=== PATIENT | female | born 1995 | race Two or more races ===

== ENCOUNTER 2023-08-11 07:55 | Emergency (ER) | payer OTHER, SELFPAY ==
[2023-08-11 08:01] VITALS: BP 135/97; PULSE 89; TEMP 37.1; O2SAT 99; BMI 29.4
--- NOTE | 2023-08-11 08:21 | ED.GENADUL1 ---
HPI HPI - General Adult General Chief complaint: Anxiety Stated complaint: GENERAL WEAKNESS Time Seen by Provider: 08/11/23 08:14 Source: patient Mode of arrival: Wheelchair Limitations: no limitations History of Present Illness HPI narrative: 28-year-old female presents to the emergency department for multiple complaints. She feels like her body is shutting down. She was admitted to another hospital for 3 days and left AMA 2 days ago. 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 She has not been vomiting and has not had a fever and does not complain to me of abdominal or back pain. Related Data Home Medications ?Medication ?Instructions ?Recorded ?Confirmed No Known Home Medications 08/11/23 08/11/23 Allergies Allergy/AdvReac Type Severity Reaction Status Date / Time amoxicillin AdvReac Mild Hives Verified 08/11/23 08:06 diphenhydramine AdvReac Mild Hives Verified 08/11/23 08:06 [From Benadryl] latex AdvReac Mild Hives Verified 08/11/23 08:06 Penicillins AdvReac Mild Hives Verified 08/11/23 08:06 Opioid HPI Opioid Management Most Recent Opioid Data: Ur Phencyclidine Scrn Negative (NEGATIVE) 08/11/23 08:00 Review of Systems ROS Narrative A ten point review of systems is negative except as noted above. Exam Narrative Exam Narrative: Nurses note and vital signs reviewed and patient is not hypoxic. General: The patient appears quite anxious and is tearful. Skin: Warm, dry, no pallor noted. There is no rash noted. Left antecubital forearm IV site has no erythema and there is no mass in her arm. Head: Normocephalic, atraumatic Eye: Normal conjunctiva, no drainage, EOMI. PERRL Ears, Nose, Mouth, and Throat: oral mucosa is moist. Nares patent. Cardiovascular: Regular Rate and Rhythm Respiratory: Patient is in no distress, no accessory muscle use, lungs are clear to auscultation, no wheezing, rales or rhonchi Back: non-tender GI: Soft and nontender Musculoskeletal: The patient has no evidence of calf tenderness, no pitting edema, symmetrical pulses noted bilaterally Neurological: Awake and alert, tremorous Psychiatric: Tearful and appears anxious Constitutional Vital Signs, click to edit/add: Last Vital Signs Temp 98.8 F 08/11/23 08:01 Pulse 89 08/11/23 08:01 Resp 18 08/11/23 08:01 BP 135/97 H 08/11/23 08:01 Pulse Ox 99 08/11/23 08:01 O2 Del Method Room Air 08/11/23 08:01 Course Vital Signs Vital signs: Vital Signs Temperature 98.8 F 08/11/23 08:01 Pulse Rate 89 08/11/23 08:01 Respiratory Rate 18 08/11/23 08:01 Blood Pressure 135/97 H 08/11/23 08:01 Pulse Oximetry 99 08/11/23 08:01 Oxygen Delivery Method Room Air 08/11/23 08:01 Temperature 98.8 F 08/11/23 08:01 Pulse Rate 89 08/11/23 08:01 Respiratory Rate 18 08/11/23 08:01 Blood Pressure 135/97 H 08/11/23 08:01 Pulse Oximetry 99 08/11/23 08:01 Oxygen Delivery Method Room Air 08/11/23 08:01 Medical Decision Making MDM Narrative Medical decision making narrative: Her workup is essentially negative other than the drug screen. Findings are discussed with the patient and she was reassured. She is able to be discharged home and she was encouraged to merchandise pickup/receiving associate the prescription for the antibiotic sent in by [facility] that she has not yet picked up. Treatment diagnosis and follow-up were discussed with the patient. Medical Records Medical records reviewed: Yes I reviewed the patient's medical records Lab Data Lab results reviewed: Yes I reviewed the patient's lab results Labs: Lab Results 08/11/23 08/11/23 Range/Units 08:00 08:24 WBC 6.4 (4.0-11.0) 10^3/uL RBC 4.00 L (4.20-5.40) 10^6/uL Hgb 11.0 L (12.0-16.0) g/dL Hct 33.6 L (36.0-48.0) % MCV 84.0 (81.0-99.0) fL MCH 27.5 (26.7-34.0) pg MCHC 32.7 (29.9-35.2) g/dL RDW 14.1 (11.0-15.0) % Plt Count 318 (150-450) 10^3/uL MPV 10.5 (9.5-13.5) fL Seg Neuts % (Manual) 68.0 Lymphocytes % (Manual) 19.0 L (20.5-60.0) % Atypical Lymphs % (Man) 2.0 % Monocytes % (Manual) 8.0 (1.7-12.0) % Eosinophils % (Manual) 2.0 (0.9-7.0) % Basophils % (Manual) 1.0 (0.2-2.0) % Neutrophils # (Manual) 4.35 (1.4-6.5) 10^3/uL Lymphocytes # (Manual) 1.21 (1.20-3.80) 10^3/uL Abs Atypical Lymphs Man 0.12 Monocytes # (Manual) 0.51 (0.30-0.80) 10^3/uL Eosinophils # (Manual) 0.12 (0.00-0.70) 10^3/uL Basophils # (Manual) 0.06 (0.00-0.10) 10^3/uL Sodium 137 (136-145) mmol/L Potassium 4.1 (3.5-5.1) mmol/L Chloride 101 (98-107) mmol/L Carbon Dioxide 24.7 (21.0-32.0) mmol/L Anion Gap 15.4 BUN 5.0 L (7.0-18.0) mg/dL Creatinine 0.60 (0.55-1.02) mg/dL Est GFR ( Amer) >60 (>=60) Est GFR (Non-Af Amer) >60 (>=60) BUN/Creatinine Ratio 8.3 Glucose 104 (74-106) mg/dL Calcium 9.0 (8.5-10.1) mg/dL Total Bilirubin 0.7 (0.2-1.0) mg/dL Direct Bilirubin 0.2 (0.0-0.2) mg/dL AST 86 H (15-37) U/L ALT 152 H (14-59) U/L Alkaline Phosphatase 193 H (46-116) U/L Total Protein 7.7 (6.4-8.2) g/dL Albumin 2.6 L (3.4-5.0) g/dL Globulin 5.1 g/dL Albumin/Globulin Ratio 0.5 Serum HCG, Qual Negative (NEGATIVE) Urine Color Lt. yellow (YELLOW) Urine Clarity Clear (CLEAR) Urine pH 6.5 (5.0-9.0) Ur Specific [place] <=1.005 A (1.005-1.025) Urine Protein Negative (NEG/TRACE) mg/dL Urine Glucose (UA) Negative (NEGATIVE) mg/dL Urine Ketones Negative (NEGATIVE) mg/dL Urine Occult Blood Negative (NEGATIVE) Urine Nitrite Negative (NEGATIVE) Urine Bilirubin Negative (NEGATIVE) Urine Urobilinogen 0.2 (0.2-1.0) EU/dL Ur Leukocyte Esterase Negative (NEGATIVE) Urine RBC None seen (0-2) #/HPF Urine WBC None seen (NONE SEEN) #/HPF Ur Squamous Epith Cells Few A (NONE/RARE) #/LPF Urine Crystals None seen (None Seen) #/HPF Urine Bacteria None seen (NONE SEEN) #/HPF Urine Casts None seen (NONE SEEN) #/LPF Urine Mucus None seen (NONE SEEN) Urine Opiates Screen Negative (NEGATIVE) Ur Buprenorphine Scrn Negative (NEGATIVE) Ur Oxycodone Screen Negative (NEGATIVE) Urine Methadone Screen Negative (NEGATIVE) Ur Barbiturates Screen Negative (NEGATIVE) U Tricyclic Antidepress Negative (NEGATIVE) Ur Phencyclidine Scrn Negative (NEGATIVE) Ur Amphetamines Screen Positive A (NEGATIVE) U Methamphetamines Scrn Positive A (NEGATIVE) U Benzodiazepines Scrn Negative (NEGATIVE) Urine Cocaine Screen Negative (NEGATIVE) U Cannabinoids Screen Positive A (NEGATIVE) Ethanol Quant <3 mg/dL Discharge Plan Discharge Stand Alone Forms: Portal Instructions Chief Complaint: Anxiety Clinical Impression: Acute anxiety, Substance abuse Patient Disposition: Home, Self-Care Time of Disposition Decision: 09:52 Prescriptions / Home Meds: No Action No Known Home Medications Print Language: Vincentian Instructions: Polysubstance Use Disorder (ED), Anxiety (ED) Additional Instructions: 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 Referrals: Cheo Iraheta MD [Primary Care Provider] - 1 week
[2023-08-11 08:46] LABS: Hematocrit 33.6 % (36.0-48.0); Mean Corpuscular HGB Conc 32.7 g/dL (29.9-35.2); Mean Corpuscular Hemoglobin 27.5 pg (26.7-34.0); Mean Platelet Volume 10.5 fL (9.5-13.5); Platelet Count 318 10^3/uL (150-450); Red Cell Distribution Width 14.1 % (11.0-15.0); White Blood Count 6.4 10^3/uL (4.0-11.0)
[2023-08-11 08:53] LABS: HCG Qualitative NEGATIVE (NEGATIVE)
[2023-08-11 08:54] LABS: Bilirubin Urine NEGATIVE (NEGATIVE); Blood Urine NEGATIVE (NEGATIVE); Clarity Urine CLEAR (CLEAR); Color Urine LT. YELLOW (YELLOW); Glucose Urine UA NEGATIVE (NEGATIVE); Ketones Urine NEGATIVE (NEGATIVE); Leukocyte Esterase Urine NEGATIVE (NEGATIVE); Nitrite Urine NEGATIVE (NEGATIVE); Protein Urine NEGATIVE (NEG/TRACE); Specific Gravity Urine <=1.005 (1.005-1.025); Urobilinogen Urine 0.2 EU/dL (0.2-1.0); pH Urine 6.5 (5.0-9.0)
[2023-08-11 08:54] LABS: Internal Control Within Normal Limits
[2023-08-11 08:56] LABS: Amphetamine Screen Urine POSITIVE (NEGATIVE); Barbiturates Screen Urine NEGATIVE (NEGATIVE); Benzodiazepines Screen Urine NEGATIVE (NEGATIVE); Buprenorphine Screen Urine NEGATIVE (NEGATIVE); Cannabinoid Screen Urine POSITIVE (NEGATIVE); Cocaine Screen Urine NEGATIVE (NEGATIVE); Methadone Screen Urine NEGATIVE (NEGATIVE); Methamphetamines Screen Urine POSITIVE (NEGATIVE); Opiate Screen Urine NEGATIVE (NEGATIVE); Oxycodone Screen Urine NEGATIVE (NEGATIVE); Phencyclidine Screen Urine NEGATIVE (NEGATIVE); Tricyclic Antidepressant Urine NEGATIVE (NEGATIVE)
[2023-08-11 08:58] LABS: Alanine Aminotransferase 152 U/L (14-59); Albumin Globulin Ratio 0.5; Albumin Level 2.6 g/dL (3.4-5.0); Alkaline Phosphatase 193 U/L (46-116); Anion Gap 15.4; Aspartate Amino Transferase 86 U/L (15-37); BUN Creatinine Ratio 8.3; Bilirubin Direct 0.2 mg/dL (0.0-0.2); Bilirubin Total 0.7 mg/dL (0.2-1.0); Carbon Dioxide 24.7 mmol/L (21.0-32.0); Chloride 101 mmol/L (98-107); Estimated GFR (African America >60 (>=60); Estimated GFR (Non-African Ame >60 (>=60); Globulin 5.1 g/dL; Glucose 104 mg/dL (74-106); Sodium 137 mmol/L (136-145); Total Protein 7.7 g/dL (6.4-8.2)
[2023-08-11 09:03] LABS: Bacteria Urine NONE SEEN #/HPF (NONE SEEN); Cast Seen? NONE SEEN #/LPF (NONE SEEN); Crystals Seen? None Seen #/HPF (None Seen); Mucus Urine NONE SEEN (NONE SEEN); RBC Urine NONE SEEN #/HPF (0-2); Squamous Epithelial Cell Urine FEW #/LPF (NONE/RARE); WBC Urine NONE SEEN #/HPF (NONE SEEN)
[2023-08-11 09:06] LABS: Atypical Lymphocytes Abs Man 0.12; Basophils Abs Manual 0.06 10^3/uL (0.00-0.10); Eosinophils Absolute Manual 0.12 10^3/uL (0.00-0.70); Lymphocytes Absolute Manual 1.21 10^3/uL (1.20-3.80); Monocytes Absolute Manual 0.51 10^3/uL (0.30-0.80); Segmented Neut Absolute Manual 4.35 10^3/uL (1.4-6.5)
[2023-08-11 09:09] LABS: Ethanol <3 mg/dL; Potassium 4.1 mmol/L (3.5-5.1)
== END 2023-08-11 10:00 | disposition home or self-care (01) ==
PROVIDERS: Emergency Provider Emergency Medicine; PCP Family Medicine
DX: F19.10 Other psychoactive substance abuse, uncomplicated (principal); F41.9 Anxiety disorder, unspecified
CPT/HCPCS: 36415; 80048; 80076; 80307; 80320; 81001; 84703; 85007; 85027; 99284

== ENCOUNTER 2024-02-06 19:46 | Emergency (ER) | payer OTHER, SELFPAY ==
[2024-02-06 19:58] VITALS: BP 131/82; PULSE 114; TEMP 37.2; O2SAT 99
[2024-02-06 20:21] LABS: Influenza Virus A Antigen Negative; Influenza Virus B Antigen Negative; Internal Control Within Normal Limits; SARS-CoV-2 Ag POSITIVE (NEGATIVE)
--- NOTE | 2024-02-06 20:45 | ED.URI1 ---
HPI - URI/Sore Throat General Stated Complaint: ear/body pain Time Seen by Provider: 02/06/24 20:45 Source: patient History of Present Illness HPI Narrative: 29 year old female presents to the ED for sinus congestion/drainage/pressure, cough, fatigue, body aches, [place], N/V. Onset was yesterday with the fatigue. Denies fever, diarrhea, abd pain, SOB. Denies chance of . Related Data Previous Rx's ?Medication ?Instructions ?Recorded benzonatate 100 mg capsule 100 mg PO TID PRN cough #20 caps 02/06/24 guaifenesin 600 mg tablet, 600 mg PO BID PRN congestion #14 02/06/24 extended release 12 hr (Mucinex) tabs Allergies Allergy/AdvReac Type Severity Reaction Status Date / Time amoxicillin AdvReac Mild Hives Verified 08/11/23 08:06 diphenhydramine (From AdvReac Mild Hives Verified 08/11/23 08:06 Benadryl) latex AdvReac Mild Hives Verified 08/11/23 08:06 Penicillins AdvReac Mild Hives Verified 08/11/23 08:06 Review of Systems ROS Constitutional Reports: chills and fatigue; Denies: fever Ears, nose, mouth, and throat Reports: nasal discharge and nasal congestion; Denies: throat pain, neck pain, ear pain or ear discharge Cardiovascular Denies: chest pain Respiratory Reports: cough; Denies: shortness of breath Gastrointestinal Reports: nausea and vomiting; Denies: abdominal pain or diarrhea Musculoskeletal Denies: neck pain Integumentary/Breast Denies: rash Neurological Reports: headache; Denies: numbness in extremities, weakness in extremities or dizziness Exam Constitutional Vital Signs, click to edit/add: Last Vital Signs Temp 98.9 F 02/06/24 19:58 Pulse 114 H 02/06/24 19:58 Resp 20 02/06/24 19:58 BP 131/82 02/06/24 19:58 Pulse Ox 99 02/06/24 19:58 O2 Del Method Room Air 02/06/24 19:58 Common normals: no apparent distress and oriented x3 General appearance: cooperative HENMT Common normals: moist oral mucous membranes Face and sinus: normal facial exam Nose: nasal discharge External ear: external ears normal External auditory canal: EACs normal Mouth: oral and palatal mucosa normal and lip normal Eye Common normals: conjunctivae normal and no scleral icterus Neck & C-Spine Common normals: supple Chest Chest: symmetrical chest wall rise Respiratory Common normals: normal respiratory effort and clear to auscultation bilaterally Effort & inspection: able to speak in complete sentences and symmetric chest movement Cardio Common normals: regular rate and regular rhythm Neuro Common normals: oriented x3 and moves all extremities Sensorium/orientation: awake and alert Speech: speech normal Gait (neuro): normal gait Course Vital Signs Vital signs: Vital Signs Temperature 98.9 F 02/06/24 19:58 Pulse Rate 114 H 02/06/24 19:58 Respiratory Rate 20 02/06/24 19:58 Blood Pressure 131/82 02/06/24 19:58 Pulse Oximetry 99 02/06/24 19:58 Oxygen Delivery Method Room Air 02/06/24 19:58 Temperature 98.9 F 02/06/24 19:58 Pulse Rate 114 H 02/06/24 19:58 Respiratory Rate 20 02/06/24 19:58 Blood Pressure 131/82 02/06/24 19:58 Pulse Oximetry 99 02/06/24 19:58 Oxygen Delivery Method Room Air 02/06/24 19:58 MDM - URI/Sore Throat MDM Narrative Medical decision making narrative: Influenza was negative. Covid-19 was positive. Findings were discussed. Prescriptions were provided for mucinex and tessalon perles. Follow up with pcp for a recheck, further evaluation and treatment. Return precautions were discussed. Differential Diagnosis Differential diagnosis: Likely upper respiratory infection, sinusitis, viral infection, influenza and other (Covid-19) Medical Records Attestation: I reviewed the patient's medical records. Lab Data Attestation: I reviewed the patient's lab results. Labs: Lab Results 02/06/24 Range/Units 20:04 Influenza Type A Ag Negative Influenza Type B Ag Negative SARS-CoV-2 Ag (CV2AG) Positive A (NEGATIVE) Discharge Plan Discharge Clinical Impression: COVID-19 Patient Disposition: Home, Self-Care Time of Disposition Decision: 20:49 Condition: Good Mode of Transportation: Private Vehicle Prescriptions / Home Meds: New guaifenesin [Mucinex] 600 mg tablet extended release 12hr 600 mg PO BID PRN (Reason: congestion) Qty: 14 0RF benzonatate 100 mg capsule 100 mg PO TID PRN (Reason: cough) Qty: 20 0RF Print Language: Mongolian Instructions: COVID-19 (Coronavirus Disease 2019) (ED), COVID-19: Slow the Coronavirus Spread (ED), How to Recover from COVID-19 at Home (ED) Additional Instructions: Return to the ER for worsening symptoms. Referrals: Cheo Iraheta MD [Primary Care Provider] - 1 week
[2024-02-06 20:55] VITALS: O2SAT 97
== END 2024-02-06 20:57 | disposition home or self-care (01) ==
PROVIDERS: Emergency Provider Student in an Organized Health Care Education/Training Program; PCP Family Medicine
DX: U07.1 COVID-19 (principal)
CPT/HCPCS: 87804; 87811; 99284